=== PATIENT | male | born 1980 | race Caucasian/White ===

== ENCOUNTER 2018-02-09 21:13 | Emergency (ER) | payer BC, OTHER ==
[2018-02-09 21:22] VITALS: BP 122/79
[2018-02-09] MEDS ORDERED: TDAP ADULT 0.5 ML INJ (BOOSTRIX) IM ONE (21:54)
--- NOTE | 2018-02-09 21:56 | EDPHY ---
H & P Time Seen by Provider: 02/09/18 21:27 HPI/ROS: CHIEF COMPLAINT: Puncture wound left thigh HISTORY OF PRESENT ILLNESS: 37-year-old male presents to the emergency department with a puncture wound to his left thigh. The patient states that he was at someone's house and there was a metal spike sticking out and he accidentally cut his lateral aspect of his left thigh. The incident happened just prior to arrival. He was able to control bleeding with firm direct pressure. He is unsure of his last tetanus shot. He is able to ambulate. ROS: Denies numbness or tingling in his toes, denies retained foreign body Past Medical/Surgical History: Deviated septum surgery, Crohn's disease, bowel resection Social History: , works in software Smoking Status: Never smoked Physical Exam: On examination the patient has a small 1 cm very superficial laceration to the anterior lateral aspect of his thigh. There is no active bleeding noted. He has minimal tenderness with palpation. He has full range of motion of his left lower extremity. Normal gait. No palpable bony tenderness. No evidence of retained foreign body. The wound appears very superficial. No lymphangitis. No redness. Constitutional: Initial Vital Signs Temperature (C) 36.6 C 02/09/18 21:17 Heart Rate 60 02/09/18 21:17 Respiratory Rate 18 02/09/18 21:17 Blood Pressure 122/79 H 02/09/18 21:17 O2 Sat (%) 93 02/09/18 21:17 O2 Delivery Mode Room Air Allergies/Adverse Reactions: No Known Allergies Allergy (Verified 02/09/18 21:16) Home Medications: Medication Instructions Recorded Cetirizine HCl [ZYRTEC] 10 mg PO DAILY PRN 10/02/15 Flonase Nasal [place] 02/09/18 MDM/Departure - [facility] Procedures: After consent was obtained from the patient, small amount of 1% lidocaine with epinephrine was instilled into the wound. The wound was thoroughly irrigated. It was explored. There is no active bleeding noted. It appeared very superficial with no muscle belly involvement. No evidence of retained foreign body. Bacitracin and bandage applied. Medications Given: Discontinued Medications Diphtheria/Tetanus/Acell Pertussis (Boostrix) 0.5 ml IM .ONCE ONE Stop: 02/09/18 21:55 Last Admin: 02/09/18 22:00 Dose: 0.5 ml ED Course/Re-evaluation: 37-year-old male presents to the emergency department with puncture wound to his left thigh. I do not think sutures are indicated. The patient's tetanus shot was updated. Patient was given wound care precautions. He will return if he notices any signs or symptoms of infection such as redness, swelling, increased pain, fever , purulent drainage. - Depart Disposition: Home, Routine, Self-Care Clinical Impression: Puncture wound of left thigh Qualifiers: Encounter type: initial encounter Qualified Code(s): S71.132A - Puncture wound without foreign body, left thigh, initial encounter Condition: Good Instructions: Puncture Wound (ED), Acute Wounds (ED) Additional Instructions: Return if you notice any signs or symptoms of infection such as redness, swelling, increased pain, fever, purulent drainage. Ibuprofen 600 mg every 8 hr as needed for pain. Activity as tolerated. Your given a tetanus shot today in the emergency department. Please document this at home for your records. Referrals: Balbina Davis PA [Primary Care Provider] - As per Instructions
== END 2018-02-09 22:13 | disposition home or self-care (01) ==
DX: S71.132A Puncture wound without foreign body, left thigh, initial encounter (principal); Z23 Encounter for immunization; W26.8XXA Contact with other sharp object(s), not elsewhere classified, initial encounter; Y92.009 Unspecified place in unspecified non-institutional (private) residence as the place of occurrence of the external cause

== ENCOUNTER → 2018-06-11 | Outpatient (CLI) | payer OTHER ==
[~2018-06-11] MED LIST: GADOBUTROL 10 ML VIAL IVP ONE; GLUCAGON HCL 0.3 MG in SYRINGE 0.3 ML IVP ONE
== END ==
LOC: FIMAGING 15:26
PROVIDERS: ATTEND Nurse Practitioner Family
DX: K50.80 Crohn's disease of both small and large intestine without complications (principal); M46.1 Sacroiliitis, not elsewhere classified
CPT/HCPCS: A9585; J1610